=== PATIENT | male | born 1970 | race Caucasian/White ===

== ENCOUNTER 2018-05-26 14:59 | Outpatient (REF) | payer MEDICAID, SELFPAY ==
[2018-05-26 20:09] LABS: Anion Gap 7.5 mmol/L (3-11); BUN 14 mg/dL (7-18); CO2 30.5 mmol/L (21.0-32.0); CREATININE 0.93 mg/dL (0.70-1.30); Calcium 8.8 mg/dL (8.5-10.1); Chloride 104 mmol/L (98-107); Cholesterol 235 mg/dL (50-200); Glucose 97 mg/dL (70-100); HDL Cholesterol 39 mg/dL (40-60); LDL CHOLESTEROL 174 mg/dL (<100); Sodium 142 mmol/L (136-145); Triglyceride 187 mg/dL (30-150)
== END 2018-05-26 15:19 ==
LOC: NCHCN 14:59
PROVIDERS: PCP Internal Medicine; Visit Provider Internal Medicine
DX: Z00.00 Encounter for general adult medical examination without abnormal findings (principal); Z13.228 Encounter for screening for other metabolic disorders; Z13.220 Encounter for screening for lipoid disorders
CPT/HCPCS: 80048; 80061; 83721